=== PATIENT | female | born 1940 | race Caucasian/White ===

== ENCOUNTER → 2020-03-16 14:24 | Outpatient (CLI) | payer OTHER, SELFPAY ==
--- NOTE | ~2020-03-16 | MM_ITS ---
EXAMINATION: MM screening santos BI w miguel HISTORY: Screening mammogram TECHNIQUE: Craniocaudal and mediolateral oblique 3-D tomosynthesis images were obtained and synthetic 2-D images were generated. CAD analysis was submitted and interpreted. COMPARISON: 06/07/2018, 03/05/2017 and 01/05/2016 bilateral digital screening mammogram examinations BREAST PARENCHYMAL COMPOSITION: There are scattered areas of fibroglandular density. FINDINGS: There is no evidence of suspicious mass, calcification, or architectural distortion to sugg est malignancy in either breast. There has been no suspicious interval change. IMPRESSION: 1. No mammographic evidence of malignancy. 2. Recommend routine screening mammography in one year. BI-RADS Category 1: Negative Reviewed, dictated and finalized at location A.
--- NOTE | ~2020-03-16 | DEXA_ITS ---
Bone Density Report Name: Barbara Garvey Age: 79 Sex: Female Ethnicity: White Date of : 1940 Indication: postmenopausal; screening for osteoporosis; Referring Provider: OLI PÉREZ Study: Bone densitometry was performed. Exam Date: March 16, 2020 Accession number: [id number] Bone Density: Region BMD T-score Z-score Classification AP Spine (L1, L3, L4) 0.930 -1.1 1.6 Osteopenia Femoral Neck (Left) 0.607 -2.2 0.1 Osteopenia Total Hip (Left) 0.901 -0.3 1.7 Normal Femoral Neck (Right) 0.758 -0.8 1.5 Normal Total Hip (Right) 0.943 0.0 2.0 Normal Total Hip Mean 0.922 -0.2 1.9 Normal World Health Organization criteria for BMD impression classify patients as: Normal (T-score at or above -1.0), Osteopenia (T-score between -1.0 and -2.5), or Osteoporosis (T-score at or below -2.5). 10-year Fracture Risk(1): Major Osteoporotic Fracture 15% Hip Fracture 4.5% Reported Risk Factors: [place] (), Neck BMD=0.607, BMI=33.5 (1) FRAX(R) Version 3.08. Fracture probability calculated for an untreated patient. Fracture probability may be lower if the patient has received treatment. Previous Exams: Region Exam Age BMD T-score BMD Change BMD Change Date g/cm2 vs Baseline vs Previous AP Spine(L1, L3, L4) 03/16/2020 79 0.930 -1.1 0.013 -0.028 03/05/2017 76 0.957 -0.9 0.041* 0.041* 10/14/2007 67 0.917 -1.2 Total Hip(Left) 03/16/2020 79 0.901 -0.3 -0.032 -0.005 03/05/2017 76 0.906 -0.3 -0.027 -0.027 10/14/2007 67 0.933 -0.1 Total Hip(Right) 03/16/2020 79 0.943 0.0 -0.032 -0.036 03/05/2017 76 0.979 0.3 0.004 0.004 10/14/2007 67 0.975 0.3 *Denotes significance at 95% confidence level, LSC for AP Spine = 0.022 g/cm2, LSC for Total Hip = 0.027 g/cm2 Clinical Information Provided by Patient: Has used the following medications: Vitamin D Patient maximum height was 63 Menopause Age: 49 No regular weight bearing exercise Drinks caffeinated beverages Onset of menses at age 16 Number of children 4 Impression: The patient has low bone mass, based on the Left Femoral Neck T-score. The patient has an estimated ten-year risk of hip fracture of 4.5% and an estimated ten-year risk of major fracture of 15%, based on the WHO FRAX algorithm. No significant bone loss was observed. Discussio
== END ==
PROVIDERS: PCP Emergency Medicine; Visit Provider Emergency Medicine
DX: Z12.31 Encounter for screening mammogram for malignant neoplasm of breast (principal); Z78.0 Asymptomatic menopausal state; M85.88 Other specified disorders of bone density and structure, other site
CPT/HCPCS: 77063; 77067; 77080

== ENCOUNTER → 2020-05-12 09:51 | Outpatient (CLI) | payer OTHER, SELFPAY ==
--- NOTE | ~2020-05-12 | MMUS_ITS ---
EXAMINATION: MM diagnostic santos RT w miguel, US breast RT limited HISTORY: Right lateral breast lump TECHNIQUE: ML, MLO, CC 3-D tomosynthesis images of the right breast were performed and synthetic 2-D images were generated. CAD analysis was submitted and interpreted. High resolution upper outer quadra nt and lower outer quadrant right breast ultrasound was performed. COMPARISON: 03/08/2020, 06/07/2018, 03/05/2017 bilateral digital screening mammogram examinations BREAST PARENCHYMAL COMPOSITION: There are scattered areas of fibroglandular density. FINDINGS: MAMMOGRAPHIC FINDINGS: No suspicious mass or architectural distortion, malignant calcification, skin thickening or retractio n or significant new or developing density is detected. Arterial calcifications and scattered punctat e benign calcifications are noted. ULTRASOUND: No suspicious mass or shadowing is detected. No cyst is identified. IMPRESSION: 1. No mammographic evidence of malignancy 2. Routine mammographic screening is recommended. BI-RADS Category 2: Benign finding(s). Reviewed, dictated and finalized at location A. IMPRESSION: 1. No mammographic evidence of malignancy 2. Routine mammographic screening is recommended. BI-RADS Category 2: Benign finding(s).
== END ==
PROVIDERS: PCP Emergency Medicine; Visit Provider Emergency Medicine
DX: R92.8 Other abnormal and inconclusive findings on diagnostic imaging of breast (principal)
CPT/HCPCS: 76642; 77061; 77065; G0279

== ENCOUNTER 2021-02-23 11:50 | Outpatient (CLI) | payer OTHER, SELFPAY ==
--- NOTE | 2021-02-23 12:14 | ECG_ITS ---
Measurements Intervals [place] Rate: 68 P: 55 MT: 157 QRS: 11 QRSD: 85 T: 47 QT: 382 QTc: 409 Interpretive Statements SINUS RHYTHM NORMAL ECG Electronically Signed On 02-23-2021 16:19:19 CDT by Brina Sarah D.O.
== END 2021-02-23 11:51 | disposition home or self-care (01) ==
PROVIDERS: PCP Emergency Medicine
DX: Z01.810 Encounter for preprocedural cardiovascular examination (principal)
CPT/HCPCS: 93005

== ENCOUNTER → 2022-04-13 14:46 | Outpatient (CLI) | payer OTHER, SELFPAY ==
--- NOTE | ~2022-04-13 | MM_ITS ---
EXAMINATION: MM screening santos BI w miguel HISTORY: Screening TECHNIQUE: Craniocaudal and mediolateral oblique 3-D tomosynthesis images were obtained and synthetic 2-D images were generated. CAD analysis was submitted and interpreted. COMPARISON: Comparison to multiple prior studies sequentially, with oldest reviewed study dated 12/10. BREAST PARENCHYMAL COMPOSITION: There are scattered areas of fibroglandular density. FINDINGS: There is no evidence of suspicious mass, calcification, or architectural distortion to sugg est malignancy in either breast. There has been no suspicious interval change. IMPRESSION: 1. No mammographic evidence of malignancy. 2. Recommend routine screening mammography in one year. BI-RADS Category 1: Negative Reviewed, dictated and finalized at location A.
--- NOTE | ~2022-04-13 | DEXA_ITS ---
Bone Density Report Name: MARLON PARIS Age: 81 Sex: Female Ethnicity: White Date of : 1940 Indication: osteopenia; postmenopausal Referring Provider: OLI PÉREZ Study: Bone densitometry was performed. Exam Date: April 13, 2022 Accession number: [id number] Bone Density: Region BMD T-score Z-score Classification AP Spine (L1, L3, L4) 0.919 -1.2 1.5 Osteopenia Femoral Neck (Left) 0.589 -2.3 0.0 Osteopenia Total Hip (Left) 0.922 -0.2 2.0 Normal Femoral Neck (Right) 0.732 -1.1 1.3 Osteopenia Total Hip (Right) 0.975 0.3 2.4 Normal Total Hip Mean 0.949 0.1 2.2 Normal World Health Organization criteria for BMD impression classify patients as: Normal (T-score at or above -1.0), Osteopenia (T-score between -1.0 and -2.5), or Osteoporosis (T-score at or below -2.5). 10-year Fracture Risk(1): Major Osteoporotic Fracture 15% Hip Fracture 4.6% Reported Risk Factors: [place] (), Neck BMD=0.589, BMI=40.6 (1) FRAX(R) Version 3.08. Fracture probability calculated for an untreated patient. Fracture probability may be lower if the patient has received treatment. Previous Exams: Region Exam Age BMD T-score BMD Change BMD Change Date g/cm2 vs Baseline vs Previous AP Spine(L1, L3, L4) 04/13/2022 81 0.919 -1.2 0.002 -0.011 03/16/2020 79 0.930 -1.1 0.013 -0.028 03/05/2017 76 0.957 -0.9 0.041* 0.041* 10/14/2007 67 0.917 -1.2 Total Hip(Left) 04/13/2022 81 0.922 -0.2 -0.011 0.021 03/16/2020 79 0.901 -0.3 -0.032 -0.005 03/05/2017 76 0.906 -0.3 -0.027 -0.027 10/14/2007 67 0.933 -0.1 Total Hip(Right) 04/13/2022 81 0.975 0.3 0.000 0.032* 03/16/2020 79 0.943 0.0 -0.032 -0.036 03/05/2017 76 0.979 0.3 0.004 0.004 10/14/2007 67 0.975 0.3 *Denotes significance at 95% confidence level, LSC for AP Spine = 0.022 g/cm2, LSC for Total Hip = 0.027 g/cm2 Clinical Information Provided by Patient: Has used the following medications: Vitamin D Patient maximum height was 63.0 Menopause Age: 49 No regular weight bearing exercise Drinks caffeinated beverages Onset of menses at age 16 Number of children 4 Impression: The patient has low bone mass, based on the Left Femoral Neck T-score. The patient has an estimate
== END ==
PROVIDERS: PCP Emergency Medicine; Visit Provider Emergency Medicine
DX: Z12.31 Encounter for screening mammogram for malignant neoplasm of breast (principal); Z78.0 Asymptomatic menopausal state; M85.89 Other specified disorders of bone density and structure, multiple sites
CPT/HCPCS: 77063; 77067; 77080

== ENCOUNTER 2022-11-24 09:17 | Outpatient (CLI) | payer OTHER, MEDICAID, SELFPAY ==
--- NOTE | ~2022-11-24 | US_ITS ---
EXAMINATION: US venous doppler LE RT DATE: 11/24/2022 10:03 INDICATION: Right lower limb pain and swelling TECHNIQUE: Batista scale images without and with compression and Doppler images of the right lower extre mity veins were obtained. COMPARISON: None FINDINGS: There is thrombosis of the right common femoral vein, profunda femoral vein, femoral vein, popliteal vein, peroneal trunk, and posterior tibial veins. The greater saphenous vein is patent. IMPRESSION: 1. Extensive deep venous thrombosis of the right lower extremity. These findings were discussed with Josefa in the office of Dr. Couch at 1020 hours on 11/24/2022. Reviewed, dictated and finalized at location B. IMPRESSION: 1. Extensive deep venous thrombosis of the right lower extremity. These finding s were discussed with Josefa in the office of Dr. Couch at 1020 hours on 11/25/19 23.
== END 2022-11-24 09:18 | disposition home or self-care (01) ==
PROVIDERS: PCP Emergency Medicine; Visit Provider Emergency Medicine
DX: R60.0 Localized edema (principal); M79.661 Pain in right lower leg; I82.401 Acute embolism and thrombosis of unspecified deep veins of right lower extremity
CPT/HCPCS: 93971

== ENCOUNTER 2022-11-28 14:43 | Outpatient (CLI) | payer OTHER, MEDICAID, SELFPAY ==
--- NOTE | 2022-11-28 14:44 | ECG_ITS ---
Measurements Intervals [place] Rate: 84 P: 56 PA: 154 QRS: 7 QRSD: 86 T: 32 QT: 368 QTc: 437 Interpretive Statements SINUS RHYTHM COMPARED TO ECG 02/23/2021 12:24:49 NO SIGNIFICANT CHANGES Electronically Signed On 11-29-2022 17:58:25 CDT by Aliya Waller M.D.
== END 2022-11-28 14:44 | disposition home or self-care (01) ==
PROVIDERS: PCP Emergency Medicine; Visit Provider Emergency Medicine
DX: R60.0 Localized edema (principal); R00.0 Tachycardia, unspecified
CPT/HCPCS: 93005

== ENCOUNTER 2023-01-09 13:26 | Outpatient (CLI) | payer OTHER, MEDICAID, SELFPAY ==
--- NOTE | 2023-01-09 13:48 | ECHO_ITS ---
Patient Info Name: Barbara Garvey Age: 82 years : 1940 Gender: Female Ht: 62 in Wt: 220 lbs BSA: 2.14 m2 HR: 95 bpm BP: 130 / 81 mmHg Heart Rhythm: Sinus Rhythm Technical Quality: Fair Exam Date: 01/09/2023 1:57 PM Exam Location: [facility] Patient Status: Outpatient Admit Date: 01/09/2023 Staff Ordering Physician: Brian Sarah DO [employer] Machine Operator: Janina Paula RDCS Attending Provider: Brian Sarah DO Referring Physician: Tyrel MAK; Exam Type: CA echo doppler color flow Study Info Indications R06.09 - Other forms of dyspnea Complete two-dimensional, color flow and Doppler transthoracic echocardiogram is performed. Summary 1. Complete two-dimensional, color flow and Doppler transthoracic echocardiogram is performed. 2. Left ventricular chamber dimension is normal. 3. Left ventricular systolic function is normal, estimated at 60-65%. 4. There is mild concentric increased left ventricular wall thickness. 5. The left ventricular diastolic function is grade I diastolic dysfunction. 6. E/e' 16 is elevated. 7. There is trace aortic valve regurgitation. 8. The mitral valve has mildly calcified annulus. 9. No pulmonary hypertension, estimated pulmonary arterial systolic pressure is 16 mmHg. Left Ventricle E/e' 16 is elevated. Left ventricular chamber dimension is normal. Left ventricular systolic function is normal, estimated at 60-65%. There is mild concentric increased left ventricular wall thickness. The left ventricular diastolic function is grade I diastolic dysfunction. Right Ventricle Right ventricular systolic function is normal and with normal TAPSE 1.7 cm. Right ventricular chamber dimension is normal. Left Atria Left atrial chamber dimension is normal. Right Atria Right atrial chamber dimension is normal. Aortic Valve The aortic valve is trileaflet. There is no aortic valve stenosis. There is trace aortic valve regurgitation. Pulmonic Valve There is no pulmonic regurgitation. Mitral Valve The mitral valve has mildly calcified annulus. There is no mitral valve stenosis. There is no mitral valve regurgitation. Tricuspid Valve There is no tricuspid valve regurgitation. No pulmonary hypertension, estimated pulmonary arterial systolic pressure is 16 mmHg. Pericardium/Pleural There is no pericardial effusion. Inferior Vena Cava Normal inferior vena cava with >50% collapse upon inspiration consistent with normal right atrial pressure, 5 mmHg. Aorta The aortic root size at the sinus of Valsalva is normal. Left Ventricular Outflow Tract Name Value Normal LVOT 2D LVOT Diameter 2.0 cm LVOT Doppler LVOT Peak Gradient 2 mmHg LVOT Mean Gradient 1 mmHg LVOT VTI 16 cm LVOT VTI/AV VTI Ratio 0.8 LVOT Stroke Volume 53 ml LVOT CO 4.1 l/min LVOT CI 1.9 l/min/m2 Pulmonic Valve Name Value Normal
== END 2023-01-09 13:27 | disposition home or self-care (01) ==
LOC: ANHCARD 13:27
PROVIDERS: PCP Emergency Medicine; Visit Provider Internal Medicine Cardiovascular Disease
DX: R06.09 Other forms of dyspnea (principal)
CPT/HCPCS: 93306

== ENCOUNTER 2023-06-28 07:58 | Outpatient (CLI) | payer OTHER, MEDICAID, SELFPAY ==
--- NOTE | 2023-06-30 06:31 | WPDPFTINT ---
PFT Procedure Performed PFT Procedure Performed Spirometry with Pre/Post Bronchodilator Plethysmography (Lung Vol) Diffusing Cap (DLCO) Flow Vol Loop PFT Interpretation This is a pulmonary function test with pre and post-bronchodilator spirometry, plethysmography and diffusing capacity. The test was performed and results interpreted in accordance with the 2019 and 2005 ATS/ERS Task Force guidelines respectively using the Global Lung Function Initiative-2012 reference equations. Patient demonstrated good effort and cooperation. Reproducibility criteria were met. The quality of the pre bronchodilator spirometry maneuver was Grade A and post bronchodilator spirometry maneuver was Grade A. Findings: Spirometry: The contour the inspiratory and expiratory flow tracing are normal. The pre bronchodilator FVC is 2.81 L, 122% predicted. The pre bronchodilator FEV1 is 2.20 L, 126% predicted. The pre bronchodilator FEV1: FVC ratio is 78%. The post bronchodilator FVC is 2.83 L, representing a 1% increase. The post bronchodilator FEV1 is 2.27 L, representing a 3% increase. The post bronchodilator FEV1: FVC ratio was 80%. Plethysmography: The total lung capacity is 4.83 L, 102% predicted. The functional residual capacity is 2.06 L, 76% predicted. The residual volume is 2.02 L, 87% predicted. Diffusing capacity: The diffusing capacity unadjusted for hemoglobin and carboxyhemoglobin is 18.7, 102% predicted. The diffusing capacity adjusted for alveolar volume is 4.47, 107% predicted. Impression: The spirometry is normal without evidence of an obstructive abnormality. There is no significant improvement after inhaling a single dose of albuterol. The lung volumes are normal. The diffusing capacity is normal. There are no prior studies for comparison
--- NOTE | 2023-06-30 06:34 | WPDSIXMINUTE ---
Six Minute Walk Procedure Procedure Performed Pulmonary Stress Test (6 min walk) Six Minute Walk Six Minute Walk: This is a 6 minute walk test. The test was performed and interpreted in accordance with the 2014 ERS/ATS task force guidelines. Findings: The patient's resting room air oxygen saturation measured by pulse oximetry was 96% and heart rate was 92 bpm. Patient ambulated for 366 meters and oxygen saturation remained 95 to 96%. Heart rate at the end of the study was 136 bpm. The patient did not qualify for supplemental oxygen at rest or with ambulation. There are no prior studies for comparison.
== END 2023-06-28 07:59 | disposition home or self-care (01) ==
LOC: ANHPFT 07:59
PROVIDERS: PCP Emergency Medicine; Visit Provider Internal Medicine Pulmonary Disease
DX: R06.09 Other forms of dyspnea (principal)
CPT/HCPCS: 94060; 94618; 94726; 94729

== ENCOUNTER 2023-07-11 10:38 | Outpatient (CLI) | payer OTHER, MEDICAID, SELFPAY ==
--- NOTE | ~2023-07-11 | XR_ITS ---
EXAMINATION: XR chest 2V 07/11/2023 10:55 INDICATION: Shortness of breath with exertion PROCEDURE: 2 view chest COMPARISON: 07/21/2008 FINDINGS: The lungs are clear. The cardiomediastinal silhouette is within normal limits. There are no pleural effusions. There is no pneumothorax suspected. There is atherosclerosis of the aorta. IMPRESSION: 1: NO ACUTE CARDIOPULMONARY DISEASE. Reviewed, dictated and finalized at location B. [employer]
== END 2023-07-11 10:39 | disposition home or self-care (01) ==
LOC: ANHIMG 10:43
PROVIDERS: PCP Emergency Medicine; Visit Provider Internal Medicine Pulmonary Disease
DX: R06.09 Other forms of dyspnea (principal)
CPT/HCPCS: 71046

== ENCOUNTER 2023-10-04 13:48 | Outpatient (CLI) | payer OTHER, MEDICAID, SELFPAY ==
--- NOTE | ~2023-10-04 | US_ITS ---
EXAMINATION: US venous doppler LE DATE: 10/04/2023 14:12 INDICATION: Localized swelling TECHNIQUE: Grayscale ultrasound images without and with compression and Doppler ultrasound images of the right lower extremity veins were obtained. COMPARISON: 11/24/2022 FINDINGS: The visualized portions of right common femoral vein, profunda (deep) femoral vein, femoral vein, pop liteal vein, peroneal trunk, posterior tibial veins, peroneal veins, gastrocnemius vein and greater s aphenous vein outflow are patent. IMPRESSION: 1. No deep venous thrombosis in the right lower limb. Reviewed, dictated and finalized at location A. ING MANAGER
== END 2023-10-04 13:49 | disposition home or self-care (01) ==
LOC: ANHIMG 13:49
PROVIDERS: PCP Emergency Medicine; Visit Provider Emergency Medicine
DX: I82.409 Acute embolism and thrombosis of unspecified deep veins of unspecified lower extremity (principal); R60.0 Localized edema
CPT/HCPCS: 93971

== ENCOUNTER 2024-04-14 10:43 | Outpatient (CLI) | payer OTHER, MEDICAID, SELFPAY ==
--- NOTE | ~2024-04-14 | XR_ITS ---
EXAMINATION: XR lumbar spine 2-3V DATE: 04/14/2024 13:16 INDICATION: Low back pain, unspecified. TECHNIQUE: 3 views of lumbar spine including standing views were obtained. COMPARISON: None. FINDINGS: There is 4 degrees dextrocurvature of thoracolumbar spine. There is 3 mm anterolisthesis of L4 on L5 and L5 on S1. There is mild chronic height loss of L5 vertebral body posteriorly. There is mildly decreased disc height at L3-L4 and L4-L5. There is multilevel facet joint osteoarthritis, elizabeth re in lower lumbar spine. IMPRESSION: 1. Mild lumbar spondylosis. Reviewed, dictated and finalized at location A. IMPRESSION: 1. Mild lumbar spondylosis.
== END 2024-04-14 10:44 ==
LOC: MICIMG 10:46
PROVIDERS: PCP Emergency Medicine; Visit Provider Emergency Medicine
DX: M47.896 Other spondylosis, lumbar region (principal)
CPT/HCPCS: 72100

== ENCOUNTER 2024-06-04 13:31 | Outpatient (CLI) | payer OTHER, MEDICAID, SELFPAY ==
--- NOTE | ~2024-06-04 | MM_ITS ---
EXAMINATION: MM screening santos BI w miguel HISTORY: Screening TECHNIQUE: Craniocaudal and mediolateral oblique 3-D tomosynthesis images were obtained and synthetic 2-D images were generated. CAD analysis was submitted and interpreted. COMPARISON: Comparison to multiple prior studies sequentially, with oldest reviewed study dated 01/04. BREAST PARENCHYMAL COMPOSITION: Not dense: There are scattered areas of fibroglandular density. FINDINGS: There is no evidence of suspicious mass, calcification, or architectural distortion to sugg est malignancy in either breast. There has been no suspicious interval change. IMPRESSION: 1. No mammographic evidence of malignancy. 2. Recommend routine screening mammography in one year. BI-RADS Category 1: Negative Reviewed, dictated and finalized at location B.
== END 2024-06-04 13:32 | disposition home or self-care (01) ==
LOC: MICIMG 13:32
PROVIDERS: PCP Emergency Medicine; Visit Provider Emergency Medicine
DX: Z12.31 Encounter for screening mammogram for malignant neoplasm of breast (principal)
CPT/HCPCS: 77063; 77067